=== PATIENT | male | born 1985 | race Caucasian/White ===

== ENCOUNTER 2020-08-11 16:21 | Emergency (ER) | payer BC ==
[~2020-08-11] VITALS: Ht 177.8 cm; Wt 70.3 kg
[2020-08-11 16:25] VITALS: BP 139/85
[2020-08-11] MEDS ORDERED: LORA1T1237 PO (17:22)
[2020-08-11 17:49] VITALS: BP 139/85
== END 2020-08-11 17:49 | disposition home or self-care (01) ==
LOC: MED 16:21
DX: J30.2 Other seasonal allergic rhinitis (principal); R07.9 Chest pain, unspecified; R03.0 Elevated blood-pressure reading, without diagnosis of hypertension; Z79.899 Other long term (current) drug therapy
CPT/HCPCS: 71045; 93005; 99284

== ENCOUNTER 2021-05-02 12:49 | Emergency (ER) | payer BC ==
[~2021-05-02] VITALS: Ht 177.8 cm; Wt 74.8 kg
[~2021-05-02 12:49] MED LIST: LORA1T1237 PO
[2021-05-02 13:36] VITALS: BP 149/89
[2021-05-02] MEDS ORDERED: ROB PO (14:23)
[2021-05-02] MEDS ORDERED: ACET-10509 PO (14:23)
--- NOTE | 2021-05-02 15:35 | NUR ---
Patient discharged with v/s stable. Written and verbal after care instructions given and explained. Patient alert, oriented and verbalized understanding of instructions. Ambulatory with steady gait. All questions addressed prior to discharge. ID band removed. Patient advised to follow up with PMD. Rx of ROBITUSSIN, TYLENOL EXTRA given. Patient educated on indication of medication including possible reaction and side effects. Opportunity to ask questions provided and answered.
== END 2021-05-02 15:35 | disposition home or self-care (01) ==
LOC: MED 12:49
DX: B34.9 Viral infection, unspecified (principal)
CPT/HCPCS: 71045; 99283